=== PATIENT | female | born 1985 | race Caucasian/White ===

== ENCOUNTER → 2016-10-05 | Outpatient (CLI) | payer OTHER ==
--- NOTE | 2016-10-05 11:09 | KCIC ---
PROCEDURE CT of the abdomen without contrast HISTORY Evaluate for ventral hernia. Umbilical pain for 2 weeks. TECHNIQUE: No intravenous or oral contrast as per request. Exposure: One or more of the following individualized dose reduction techniques were utilized for this exam: 1. Automated exposure control. 2. Adjustment of the mA and/or kV according to patient size. 3. Use of iterative reconstruction technique. COMPARISON None FINDINGS Lung bases are clear. No gross pneumoperitoneum. Minimal fat containing anterior abdominal wall protrusion at the umbilicus, but no significant bowel containing hernia is identified. Abdominal bowel loops demonstrate moderate retained stool in the visualized colon. Examination of solid viscera, GI tract and vascular structures is compromised by the noncontrast technique. Liver, spleen, pancreas, adrenals and kidneys appear grossly unremarkable. No calcified gallstone. Abdominal aorta demonstrates no aneurysmal dilatation. No obvious bowel obstruction. IMPRESSION 1. No evidence of significant bowel containing anterior abdominal wall hernia. 2. Moderate constipation. Electronically signed by: Michelet Ladd MD (October 05, 2016 11:07:52)
== END | disposition home or self-care (01) ==
LOC: KCIC CT 09:27
PROVIDERS: ATTEND Obstetrics & Gynecology
DX: K43.9 Ventral hernia without obstruction or gangrene (principal); K59.00 Constipation, unspecified
CPT/HCPCS: 74150

== ENCOUNTER 2021-06-03 12:54 | Emergency (ER) | payer BC, OTHER ==
[~2021-06-03] VITALS: Ht 157.5 cm; Wt 55.1 kg
[2021-06-03 13:19] VITALS: BP 119/76
== END 2021-06-03 18:50 | disposition left against medical advice (07) ==
LOC: ER 12:54
DX: R51.9 Headache, unspecified (principal); M54.2 Cervicalgia; Z53.21 Procedure and treatment not carried out due to patient leaving prior to being seen by health care provider